=== PATIENT | female | born 1950 | race Caucasian/White ===

== ENCOUNTER → 2024-06-11 15:26 | Outpatient (BNVA) | payer OTHER, SELFPAY | PROVIDERS: Family Provider Nurse Practitioner Family; PCP Nurse Practitioner Family; Visit Provider Orthopaedic Surgery | DX: M54.9 Dorsalgia, unspecified (principal) | CPT/HCPCS: 72110; 99204 ==

== ENCOUNTER 2024-08-17 15:44 | Outpatient (CLI) | payer MEDICARE, OTHER, SELFPAY ==
--- NOTE | 2024-08-17 16:00 | CT_ITS ---
WS: [id number] CT LUMBAR SPINE, noncontrast. HISTORY: Back pain TECHNIQUE: Contiguous 2.0 mm axial imaging are performed. Sagittal and coronal reformats are submitted and reviewed. All CT scans at [facility] use at least one of these dose optimization techniques: automated exposure control; mA and/or kV adjustment per patient size (includes targeted exams where dose is matched to clinical indication); or iterative reconstruction. IV contrast: None DLP: 302.71 mGy.cm COMPARISON: None available. Very minimal straightening of the normal lumbar lordosis. No fractures. Disc spaces are well-maintained with the exception of L5-S1. Mild asymmetric narrowing of the L5-S1 disc. Bone upon bone and portions of the L5-S1 disc space. L1-2: Normal. L2-3: Normal. L3-4: Mild annular disc bulging. Very minimal encroachment upon the traversing L4 nerve roots. No stenosis. L4-5: Diffuse annular disc bulging. Very minimal encroachment upon the subarticular recesses. Mild facet arthritis. L5-S1: Mild annular disc bulging with small osteophytes. Very minimal encroachment upon the traversing S1 nerve roots. Slightly greater contact on the RIGHT S1 nerve root. No high-grade stenosis. Moderate atherosclerotic plaque within the abdominal aorta extending into the iliac arteries. Visualized retroperitoneum is normal. Incompletely visualized hypodensities in the liver probably cysts. LEFT low- attenuation well-circumscribed LEFT adrenal mass measures 3.9 cm. Hounsfield units suggesting this is a cyst. CT/CT lumbar spine wo con* [id number] IMPRESSION: 1. No high-grade central or foraminal stenosis. 2. Asymmetric moderate disc base narrowing at L5-S1. 3. Minimal disc contact on the traversing L4 nerve roots and traversing S1 ner ve roots. 4. No high-grade central or foraminal stenosis. 5. No lumbar spine fracture. 6. Moderate atherosclerosis aorta and iliac arteries.
== END 2024-08-17 15:45 | disposition home or self-care (01) ==
LOC: RAD 15:50
PROVIDERS: Family Provider Nurse Practitioner Family; PCP Electrodiagnostic Medicine; Visit Provider Orthopaedic Surgery
DX: M51.379 Other intervertebral disc degeneration, lumbosacral region without mention of lumbar back pain or lower extremity pain (principal); I70.0 Atherosclerosis of aorta; I70.8 Atherosclerosis of other arteries; M51.369 Other intervertebral disc degeneration, lumbar region without mention of lumbar back pain or lower extremity pain; M47.896 Other spondylosis, lumbar region; M25.78 Osteophyte, vertebrae; R93.2 Abnormal findings on diagnostic imaging of liver and biliary tract; R93.89 Abnormal findings on diagnostic imaging of other specified body structures
CPT/HCPCS: 72131

== ENCOUNTER → 2024-09-01 15:40 | Outpatient (BNVA) | payer MEDICARE, OTHER, SELFPAY | PROVIDERS: Family Provider Nurse Practitioner Family; PCP Electrodiagnostic Medicine; Visit Provider Orthopaedic Surgery | DX: M48.062 Spinal stenosis, lumbar region with neurogenic claudication (principal); M54.9 Dorsalgia, unspecified; Z09 Encounter for follow-up examination after completed treatment for conditions other than malignant neoplasm | CPT/HCPCS: 99214 ==

== ENCOUNTER → 2024-09-29 07:45 | Outpatient (BNVA) | payer MEDICARE, OTHER, SELFPAY | PROVIDERS: Family Provider Nurse Practitioner Family; PCP Electrodiagnostic Medicine; Visit Provider Podiatrist Foot & Ankle Surgery | DX: I73.9 Peripheral vascular disease, unspecified (principal); L60.3 Nail dystrophy | CPT/HCPCS: 11721; 99203 ==

== ENCOUNTER → 2024-10-09 08:04 | Outpatient (BNVA) | payer MEDICARE, OTHER, SELFPAY | PROVIDERS: Family Provider Nurse Practitioner Family; PCP Electrodiagnostic Medicine; Referring Provider Electrodiagnostic Medicine; Visit Provider Nurse Practitioner Family | DX: L40.8 Other psoriasis (principal); L28.0 Lichen simplex chronicus; L90.5 Scar conditions and fibrosis of skin; L57.8 Other skin changes due to chronic exposure to nonionizing radiation; L81.4 Other melanin hyperpigmentation; X32.XXXA Exposure to sunlight, initial encounter | CPT/HCPCS: 99204 ==

== ENCOUNTER 2024-11-06 16:26 | Outpatient (CLI) | payer MEDICARE, OTHER, SELFPAY ==
--- NOTE | 2024-11-06 16:37 | USR_ITS ---
PROCEDURE INFORMATION: Exam: US Duplex Bilateral Lower Extremity Arteries Exam date and time: 11/06/2024 4:59 PM Age: 74 years old Clinical indication: Pain; Leg, lower; Bilateral; Prior surgery; Surgery date: 6+ months; Surgery type: Right iliac stent; Additional info: Claudication TECHNIQUE: Imaging protocol: Real-time ultrasound scan of the arteries of the bilateral lower extremities with 2-D aiken scale, color Doppler flow and spectral waveform analysis. Images documented and saved. COMPARISON: No relevant prior studies available. FINDINGS: Right common femoral artery: No occlusion or significant stenosis. Biphasic waveform. Right superficial femoral artery: No occlusion or significant stenosis. Biphasic waveform. Right popliteal artery: No occlusion or significant stenosis. Biphasic waveform. Right calf/foot arteries: No occlusion or significant stenosis in the visualized arteries. Biphasic waveforms. Dorsalis pedis artery is patent. Left common femoral artery: No occlusion or significant stenosis. Biphasic waveform. Left superficial femoral artery: No occlusion or significant stenosis. Biphasic waveform. Left popliteal artery: No occlusion or significant stenosis. Biphasic waveform. Left calf/foot arteries: No occlusion or significant stenosis in the visualized arteries. Biphasic waveforms. Dorsalis pedis artery is patent. US/[place] [id number] IMPRESSION: No stenosis or occlusion.
== END 2024-11-06 16:27 | disposition home or self-care (01) ==
LOC: RAD 16:30
PROVIDERS: Family Provider Nurse Practitioner Family; PCP Electrodiagnostic Medicine; Visit Provider Surgery Vascular Surgery
DX: I70.213 Atherosclerosis of native arteries of extremities with intermittent claudication, bilateral legs (principal); Z95.828 Presence of other vascular implants and grafts
CPT/HCPCS: 93925

== ENCOUNTER → 2024-11-23 15:50 | Outpatient (BNVA) | payer MEDICARE, OTHER, SELFPAY | PROVIDERS: Family Provider Nurse Practitioner Family; PCP Electrodiagnostic Medicine; Visit Provider Nurse Practitioner Family | DX: L40.8 Other psoriasis (principal); L28.0 Lichen simplex chronicus | CPT/HCPCS: 99214 ==

== ENCOUNTER → 2024-12-01 08:08 | Outpatient (BNVA) | payer MEDICARE, OTHER, SELFPAY | PROVIDERS: Family Provider Nurse Practitioner Family; PCP Electrodiagnostic Medicine; Visit Provider Podiatrist Foot & Ankle Surgery | DX: I73.9 Peripheral vascular disease, unspecified (principal); L60.3 Nail dystrophy | CPT/HCPCS: 11721 ==

== ENCOUNTER 2025-02-05 14:19 | Outpatient (CLI) | payer MEDICARE, OTHER, SELFPAY ==
--- NOTE | 2025-02-05 14:40 | MM_ITS ---
WS: [id number] BILATERAL 3D TOMOSYNTHESIS DIGITAL SCREENING MAMMOGRAM WITH CAD CLINICAL INFORMATION: screening HISTORY: Screening mammogram. No current complaints. COMPARISON: 2007 TECHNIQUE: Bilateral CC and MLO. FINDINGS: The breast are composed of extremely dense tissue, which can limit the detection of small underlying mass lesions. No suspicious focal mass, asymmetry, calcifications, or architectural distortion. No evidence of malignancy. Vascular calcification. Benign dystrophic and lucent centered calcifications. MM/MM [facility] tomosynthesis [id number] IMPRESSION: DENSITY: The breasts are extremely dense, which lowers the sensitivity of mammo graphy. BI-RADS: 2 - Benign FOLLOW UP: 1 Year Follow-up Recommend return to annual screening mammography.
== END 2025-02-05 14:20 | disposition home or self-care (01) ==
LOC: RAD 14:20
PROVIDERS: PCP Family Medicine; Visit Provider Family Medicine
DX: Z12.31 Encounter for screening mammogram for malignant neoplasm of breast (principal); R92.343 Mammographic extreme density, bilateral breasts; I70.90 Unspecified atherosclerosis; R92.1 Mammographic calcification found on diagnostic imaging of breast
CPT/HCPCS: 77063; 77067

== ENCOUNTER 2025-02-19 15:43 | Outpatient (CLI) | payer MEDICARE, OTHER, SELFPAY ==
--- NOTE | 2025-02-19 15:49 | XR_ITS ---
WS: [id number] XR cervical spine 3V* [id number] REASON FOR EXAM: neck pain FINDINGS: Relatively normal cervical lordosis. 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 Normal odontoid. Remaining cervical vertebral bodies demonstrate no significant compression deformity or focal lesion. Significant narrowing of the C5-C6 disc space with moderate endplate sclerosis and anterior and posterior osteophytosis. 2 mm of anterolisthesis of C3 on C4. 2 mm of anterolisthesis of C6 in relation to C5. Moderate degenerative arthropathy in the facet joints C2-C6. XR/XR cervical spine 3V* [id number] IMPRESSION: Degenerative spondylosis as above. Moderate calcified carotid artery plaque bilaterally.
[2025-02-19 16:13] LABS: Hematocrit 41.7 % (36-47); Hemoglobin 14.10 g/dL (11.27-16.99); Mean Corpuscular HGB Conc 33.8 g/dL (30-55); Mean Corpuscular Hemoglobin 30.0 pg (27-33); Mean Corpuscular Volume 88.7 fl (85-98); Nucleated Red Blood Cells % 0 %; Platelet Count 292 10^3/cmm (157-399); Red Blood Count 4.70 10^6/uL (3.85-5.65); White Blood Count 6.90 10^3/uL (3.29-11.43)
[2025-02-19 16:44] LABS: Alanine Aminotransferase < 5 U/L (0-33); Albumin Level 4.2 g/dL (3.5-5.2); Alkaline Phosphatase 127 U/L (35-105); Anion Gap 18.0 (5-19); Aspartate Amino Transferase 21 U/L (0-32); Blood Urea Nitrogen 20 mg/dL (8-23); Calcium 9.3 mg/dL (8.5-10.5); Carbon Dioxide 23 mmol/L (22-29); Chloride 101 mmol/L (98-107); Cholesterol 226 mg/dL (0-200); Free T4 Free Thyroxine 1.12 ng/dL (0.82-1.77); Globulin 3.7 g/dL (1.3-4.6); Glucose 103 mg/dL (65-115); HDL Cholesterol 91 mg/dL (60-100); Osmolality Calculated 289 mOsm/kg (285-295); Potassium 4.0 mmol/L (3.5-5.1); Sodium 138 mmol/L (136-145); Thyroid Stimulating Hormone 2.48 uIU/mL (0.27-4.20); Total Protein 7.9 g/dL (6.6-8.7); Triglycerides 199 mg/dL (0-150)
[2025-02-20 05:15] LABS: PROTEIN, TOTAL 7.6 g/dL (6.1-8.1)
[2025-02-22 08:40] LABS: Vitamin B12 > 2000 pg/mL (232-1245)
[2025-02-22 13:10] LABS: RPR w(Moniotor) w/REFL Titer NON-REACTIVE (NON-REACTIVE)
[2025-02-22 21:35] LABS: ALPHA 1 GLOBULIN 0.4 g/dL (0.2-0.3); ALPHA 2 GLOBULIN 0.9 g/dL (0.5-0.9); BETA 1 GLOBULIN 0.6 g/dL (0.4-0.6); BETA 2 GLOBULIN 0.5 g/dL (0.2-0.5)
== END 2025-02-19 15:44 | disposition home or self-care (01) ==
LOC: RAD 15:46
PROVIDERS: PCP Family Medicine; Visit Provider Family Medicine
DX: I10 Essential (primary) hypertension (principal); I25.10 Atherosclerotic heart disease of native coronary artery without angina pectoris; I73.9 Peripheral vascular disease, unspecified; E04.1 Nontoxic single thyroid nodule; M85.89 Other specified disorders of bone density and structure, multiple sites; E55.9 Vitamin D deficiency, unspecified; E53.8 Deficiency of other specified B group vitamins; R29.90 Unspecified symptoms and signs involving the nervous system; L40.9 Psoriasis, unspecified; G89.29 Other chronic pain; M50.322 Other cervical disc degeneration at C5-C6 level; M48.02 Spinal stenosis, cervical region; M43.12 Spondylolisthesis, cervical region; M47.892 Other spondylosis, cervical region; I65.23 Occlusion and stenosis of bilateral carotid arteries; Q67.5 Congenital deformity of spine
CPT/HCPCS: 36415; 72040; 80053; 80061; 82306; 82607; 84155; 84165; 84439; 84443; 84481; 85025; 86592; 86803

== ENCOUNTER 2025-02-25 16:06 | Outpatient (CLI) | payer MEDICARE, OTHER, SELFPAY ==
--- NOTE | 2025-02-25 16:30 | CT_ITS ---
WS: [id number] CT CERVICAL SPINE NONCONTRAST AND CONTRAST TECHNIQUE: Noncontrast CT of the cervical spine with coronal and sagittal reformatted images. CLINICAL INFORMATION: abnormal cervical spine; leg weakness; can't have MRIs COMPARISON: Radiograph 02/19/2025 DLP: 275.[address] scans at [facility] use at least one of these dose optimization techniques: automated exposure control; mA and/or kV adjustment per patient size (includes targeted exams where dose is matched to clinical indication); or iterative reconstruction. FINDINGS: Partially visualized intracranial aneurysm clips on the senior pl sql developer imaging. Partially visualized RIGHT pterional craniotomy. Straightening of the normal cervical lordosis. Moderate spondylitic changes. Disc narrowing worse at C5-6 with disc osteophyte complex. Slight anterolisthesis C2 on C3, C3 on C4 and C4 on C5. C2-C3: Normal. C3-C4: Mild facet arthropathy. Spinal canal and foramen are patent. Shallow central disc bulging. C4-C5: Shallow central disc bulging. Disc osteophyte ridging eccentric to the LEFT. Mild LEFT bony foraminal narrowing. Moderate facet arthropathy. C5-C6: Disc osteophyte complex with mild central canal stenosis. Slight contact of the cervical cord. Severe LEFT and moderate RIGHT bony foraminal narrowing. Moderate facet arthropathy with uncovertebral joint hypertrophy. C6-C7: Mild LEFT bony foraminal narrowing. Spinal canal and RIGHT foramen are patent. C7-T1: No significant disc bulging. Spinal canal and foramen are patent. Moderate calcified atheromatous plaque with carotid bulbs. Tiny RIGHT thyroid nodule. Posterior projecting LEFT thyroid nodule measuring 2.[address]/CT cervical spine wo/w [id number] IMPRESSION: 1. Disc osteophyte complex C5-C6 with mild central canal stenosis. 2. Severe LEFT C5-C6 bony foraminal narrowing. 3. Otherwise mild to moderate bony foraminal narrowing described above.
[2025-02-25] MEDS: iohexol 350 mg/mL 500 mL Btl (per mL) IV (17:18)
== END 2025-02-25 16:07 | disposition home or self-care (01) ==
LOC: RAD 16:08
PROVIDERS: PCP Family Medicine; Visit Provider Family Medicine
DX: M47.12 Other spondylosis with myelopathy, cervical region (principal)
CPT/HCPCS: 72127

== ENCOUNTER 2025-03-12 14:31 | Outpatient (CLI) | payer MEDICARE, OTHER, SELFPAY ==
--- NOTE | 2025-03-12 14:45 | CT_ITS ---
WS: [email or web address] LDCT LUNG CANCER SCREENING TECHNIQUE: Noncontrast CT of the chest with coronal and sagittal reformatted images. CLINICAL INFORMATION: smoker, 57pk yr; screening COMPARISON: None. DLP: 68.10 mGy.cm DIvol: Mean CTDIvol: 0.70 (mGy) All CT scans at [facility] use at least one of these dose optimization techniques: automated exposure control; mA and/or kV adjustment per patient size (includes targeted exams where dose is matched to clinical indication); or iterative reconstruction. FINDINGS: Moderate chronic emphysematous changes. Several scattered noncalcified pulmonary nodules largest measuring 3 to 4 mm. Largest nodules in the RIGHT upper lobe and LEFT lower lobe along the diaphragm measuring between 3 and 4 mm. Small bilateral perifissural nodules. RIGHT upper lobe nodule measuring 4 mm with a slightly spiculated appearance. Recommend 6-month follow-up considering no comparisons. Vascular calcification. Nodular LEFT thyroid. Aortic calcification. Normal caliber thoracic aorta. Coronary calcification. No mediastinal or hilar lymphadenopathy. No axillary lymphadenopathy. Mild thoracic kyphosis. Small esophageal hiatal hernia. LEFT upper pole renal cyst measuring 3.6 cm. Cysts in the dome of the liver the largest measuring 1.[address]/CT lung screening [id number] IMPRESSION: LUNG-RADS: 3-Probably Benign 4 mm nodule RIGHT upper lobe with a slightly spiculated appearance. Considering no comparisons recommend 6-month follow-up to evaluate stability FOLLOW UP: 6 Month LDCT
== END 2025-03-12 14:32 | disposition home or self-care (01) ==
PROVIDERS: PCP Family Medicine; Visit Provider Family Medicine
DX: Z12.2 Encounter for screening for malignant neoplasm of respiratory organs (principal); F17.218 Nicotine dependence, cigarettes, with other nicotine-induced disorders; J43.9 Emphysema, unspecified; R91.8 Other nonspecific abnormal finding of lung field; I70.209 Unspecified atherosclerosis of native arteries of extremities, unspecified extremity; J98.4 Other disorders of lung; E04.1 Nontoxic single thyroid nodule; I35.8 Other nonrheumatic aortic valve disorders; M40.204 Unspecified kyphosis, thoracic region; K44.9 Diaphragmatic hernia without obstruction or gangrene; I25.84 Coronary atherosclerosis due to calcified coronary lesion
CPT/HCPCS: 71271

== ENCOUNTER 2025-03-16 14:35 | Oncology outpatient (recurring) (ONCR) | payer MEDICARE, OTHER, SELFPAY | END 2025-04-02 23:59 | disposition home or self-care (01) | PROVIDERS: PCP Family Medicine; Visit Provider Internal Medicine Medical Oncology | DX: Z53.9 Procedure and treatment not carried out, unspecified reason (principal); D47.2 Monoclonal gammopathy; F17.210 Nicotine dependence, cigarettes, uncomplicated; R55 Syncope and collapse; R26.81 Unsteadiness on feet; G62.9 Polyneuropathy, unspecified; M48.00 Spinal stenosis, site unspecified | CPT/HCPCS: 99205 ==

== ENCOUNTER → 2025-03-23 15:37 | Outpatient (BNVA) | payer MEDICARE, OTHER, SELFPAY | PROVIDERS: PCP Family Medicine; Visit Provider Podiatrist Foot & Ankle Surgery | DX: I73.9 Peripheral vascular disease, unspecified (principal); L60.3 Nail dystrophy; L60.8 Other nail disorders | CPT/HCPCS: 11721 ==

== ENCOUNTER → 2025-05-11 15:37 | Outpatient (BNVA) | payer MEDICARE, OTHER, SELFPAY | PROVIDERS: PCP Family Medicine; Visit Provider Nurse Practitioner Family | DX: L40.8 Other psoriasis (principal); L28.0 Lichen simplex chronicus; L82.1 Other seborrheic keratosis; L57.8 Other skin changes due to chronic exposure to nonionizing radiation; L81.4 Other melanin hyperpigmentation; D18.01 Hemangioma of skin and subcutaneous tissue | CPT/HCPCS: 99214 ==